=== PATIENT | female | born 2000 | race Caucasian/White ===

== ENCOUNTER 2024-04-04 08:33 | Day surgery (SDC) | payer BC ==
[2024-04-04] MEDS ORDERED: hydrALAZINE 20 MG/ML VIAL SLOW IVP PRN (08:54)
[2024-04-04 09:30] VITALS: BMI 27.6
[2024-04-04 09:41] LABS: #Basophils 0.01 10x3/uL (0.0-0.2); #Eosinphils 0.02 10x3/uL (0.0-0.5); #Monocytes 0.54 10x3/uL (0.0-1.1); #Neutrophils 5.58 10x3/uL (1.5-8.4); %Basophils 0.1 % (0.0-2.0); %Eosinophils 0.3 % (0.0-6.0); %Lymphocytes 18.8 % (18.0-47.0); %Monocytes 7.1 % (0.0-10.0); %Neutrophils 73.4 % (40.0-75.0); Hematocrit 37.2 % (34.9-44.5); Hemoglobin 12.9 g/dL (12.0-15.5); Mean Corpuscular HGB CONC 34.7 g/dL (32.0-36.0); Mean Corpuscular Hemoglobin 32.5 pg (27.0-33.0); Mean Corpuscular Volume 93.7 fL (81.6-98.3); Mean Platelet Volume 10.5 fL (7.4-10.4); Platelet Count 189 10x3/uL (150-450); RBC Distribution Width 13.2 % (11.5-14.5); Red Blood Cell (RBC) Count 3.97 10x6/uL (3.90-5.03); White Blood Cell (WBC) Count 7.6 10x3/uL (3.5-10.5)
[2024-04-04] MEDS: Acetaminophen 500 MG TAB PO SCH (09:55)
[2024-04-04] MEDS: diphenhydrAMINE 50 MG/ML VIAL IVP SCH (09:56)
[2024-04-04] MEDS: Metoclopramide HCl 10 MG (2 mL) VIAL IVP SCH (09:56)
[2024-04-04] MEDS ORDERED: Lactated Ringer's 1,000 ML IV SCH (10:00)
[2024-04-04 10:06] LABS: ALT (SGPT) 7 U/L (8-55); AST (SGOT) 12 U/L (5-34); Albumin 2.6 g/dL (3.5-5.0); Alkaline Phosphatase 154 U/L (40-110); Anion Gap 13 mmol/L (10-20); BUN (Urea Nitrogen) 6 mg/dL (7.0-18.7); Bilirubin, Total 0.2 mg/dL (0.2-1.2); Calc. Creatinine Clearance 193 mL/min (70-130); Carbon Dioxide 22 mmol/L (22-29); Chloride 107 mmol/L (98-107); Estimated GFR 131; Globulin 2.9 g/dL (2.4-3.5); Glucose 91 mg/dL (70-105); Potassium 3.9 mmol/L (3.5-5.1); Protein, Total 5.5 g/dL (6.0-8.3); Sodium 138 mmol/L (136-145)
[2024-04-04 10:10] LABS: Bilirubin Neg (Negative); Blood, Urine Negative (Negative); Clarity Cloudy (Clear); Glucose, Urine (Dipstick) Normal (Negative); Ketone, Urine Negative (Negative); Leukocyte 100 (Negative); Nitrite Negative (Negative); Protein, Urine (Dipstick) 15 mg/dl (Neg-Trace); Specific Gravity, Urine 1.015 (1.005-1.030); Urobilinogen Normal mg/dL (Less than 2)
[2024-04-04 10:13] LABS: Influenza A by NAA Not Detected (NotDetected); Influenza B by NAA Not Detected (NotDetected); RSV by NAA Not Detected (NotDetected); SARS-CoV-2 NAA Rapid Test Not Detected (NotDetected)
[2024-04-04 10:26] LABS: Bacteria/HPF 1+ HPF (None Seen); CAUTI Indications for Culture Pregnancy; RBC/HPF 0-3 HPF (0-3); Urine Culture Reflex Yes Yes
[2024-04-04] MEDS ORDERED: Multivitamins, Adult 10 ML, Folic Acid 1 MG, Thiamine HCl 100 MG, Admixture Fee 1 EACH ... IV SCH (12:00)
== END 2024-04-04 13:06 | disposition home or self-care (01) ==
LOC: CSHLD/OP 08:33
PROVIDERS: ATTEND Student in an Organized Health Care Education/Training Program
DX: O99.613 Diseases of the digestive system complicating pregnancy, third trimester (principal); K52.9 Noninfective gastroenteritis and colitis, unspecified; O47.03 False labor before 37 completed weeks of gestation, third trimester; O00.01 Abdominal pregnancy with intrauterine pregnancy; O99.891 Other specified diseases and conditions complicating pregnancy; R51.9 Headache, unspecified; O21.9 Vomiting of pregnancy, unspecified; O99.513 Diseases of the respiratory system complicating pregnancy, third trimester; J45.909 Unspecified asthma, uncomplicated; O99.283 Endocrine, nutritional and metabolic diseases complicating pregnancy, third trimester; E03.9 Hypothyroidism, unspecified; O99.343 Other mental disorders complicating pregnancy, third trimester; F41.9 Anxiety disorder, unspecified; Z79.899 Other long term (current) drug therapy; Z79.890 Hormone replacement therapy; Z3A.36 36 weeks gestation of pregnancy
CPT/HCPCS: 0241U; 80053; 81001; 85025; 87086; 96360; 96361; 96374; 99285; J1200; J2765; J3411; J7042

== ENCOUNTER 2024-04-22 05:28 | Inpatient (IN) | payer BC ==
[2024-04-22 05:57] VITALS: BMI 29.9
[2024-04-22] MEDS ORDERED: HYDROcodone/Acetaminophen 5/325 mg Tablet PO PRN (06:38)
[2024-04-22] MEDS ORDERED: Diphenoxylate HCl/Atropine Tablet PO PRN (06:38)
[2024-04-22] MEDS ORDERED: hydrALAZINE 20 MG/ML VIAL SLOW IVP PRN (06:38)
[2024-04-22] MEDS ORDERED: Methylergonovine 0.2 MG/ML VIAL IM PRN (06:38)
[2024-04-22] MEDS ORDERED: Carboprost 250 MCG/ML AMP IM PRN (06:38)
[2024-04-22] MEDS ORDERED: Promethazine HCl 25 MG/ML VIAL IM PRN ×3 (06:38→16:31)
[2024-04-22] MEDS ORDERED: Ondansetron PF 4 MG/2 ML Vial IVP PRN ×2 (06:38→11:42)
[2024-04-22] MEDS ORDERED: Acetaminophen 500 MG TAB PO PRN (06:38)
[2024-04-22 06:58] LABS: Hematocrit 35.5 % (34.9-44.5); Hemoglobin 12.7 g/dL (12.0-15.5); Mean Corpuscular HGB CONC 35.8 g/dL (32.0-36.0); Mean Corpuscular Hemoglobin 33.2 pg (27.0-33.0); Mean Corpuscular Volume 92.9 fL (81.6-98.3); Mean Platelet Volume 10.8 fL (7.4-10.4); Platelet Count 166 10x3/uL (150-450); RBC Distribution Width 13.3 % (11.5-14.5); Red Blood Cell (RBC) Count 3.82 10x6/uL (3.90-5.03)
[2024-04-22] MEDS: Oxytocin 30 units/NS 500 ML 500 ML IV SCH (07:23)
[2024-04-22] MEDS: Lactated Ringer's 1,000 ML IV SCH (07:23)
[2024-04-22 07:28] LABS: ALT (SGPT) 7 U/L (8-55); AST (SGOT) 13 U/L (5-34); Albumin 2.6 g/dL (3.5-5.0); Alkaline Phosphatase 210 U/L (40-110); Anion Gap 14 mmol/L (10-20); BUN (Urea Nitrogen) 7 mg/dL (7.0-18.7); Bilirubin, Total 0.2 mg/dL (0.2-1.2); Calc. Creatinine Clearance 207 mL/min (70-130); Calcium 8.5 mg/dL (7.8-10.44); Carbon Dioxide 21 mmol/L (22-29); Chloride 107 mmol/L (98-107); Estimated GFR 129; Globulin 2.9 g/dL (2.4-3.5); Glucose 106 mg/dL (70-105); Potassium 3.6 mmol/L (3.5-5.1); Protein, Total 5.5 g/dL (6.0-8.3); Sodium 138 mmol/L (136-145)
[2024-04-22 07:32] LABS: Syphilis Antibody Nonreactive (Nonreactive); Syphilis Antibody Index 0.04 S/CO (<1.00 Non-Reactive)
[2024-04-22 07:33] LABS: HBsAg Index 0.18 S/CO (0-0.99); Hep B Surf Ag - L&D Non-Reactive S/CO (NonReactive)
[2024-04-22] MEDS: fentaNYL 50 mcg/mL 1 mL Vial SLOW IVP PRN (10:36)
[2024-04-22 11:16] LABS: INR-International Normal Ratio 0.9; PTT 23.6 sec (22.0-33.0)
[2024-04-22] MEDS ORDERED: Naloxone HCl 0.4 mg/ml Vial IV PRN ×2 (11:42→16:31)
[2024-04-22] MEDS ORDERED: diphenhydrAMINE 25 MG CAP PO PRN ×2 (11:42→16:31)
[2024-04-22] MEDS ORDERED: diphenhydrAMINE 50 MG/ML VIAL IVP PRN ×2 (11:42→16:31)
[2024-04-22] MEDS ORDERED: diphenhydrAMINE 50 MG/ML VIAL IM PRN ×2 (11:42→16:31)
[2024-04-22] MEDS ORDERED: Communication Order-Pharmacy FS PRN (11:45)
[2024-04-22] MEDS: FENTANYL 500 MCG/10 ML VIAL 1,000 MCG in Sodium Chloride 0.9% 30 ML IV PRN (14:33)
[2024-04-22] MEDS ORDERED: FENTANYL 500 MCG/10 ML VIAL 1,000 MCG in Sodium Chloride 0.9% 30 ML IV PRN (16:01)
[2024-04-22] MEDS: FENTANYL 500 MCG/10 ML VIAL 2,000 MCG in Sodium Chloride 0.9% 60 ML IV PRN (16:20)
[2024-04-22] MEDS ORDERED: Communication Order-Pharmacy FS SCH (16:45)
[2024-04-22] MEDS: HYDROmorphone/PF 10 MG in Sodium Chloride 0.9% 49 ML IV PRN (17:29)
[2024-04-22] MEDS: Ondansetron PF 4 MG/2 ML Vial IVP PRN (19:41)
[2024-04-23] MEDS: Lidocaine 1% (PF) 30 ML VIAL SC PRN (03:20)
[2024-04-23] MEDS: Oxytocin 30 units/NS 500 ML 500 ML IV SCH (03:20)
[2024-04-23] MEDS: Misoprostol 200 MCG TAB PR PRN (03:34)
[2024-04-23 03:47] LABS: Analyzer IN Cardio CS NICU; RapidComm Collect By RN; pH (Cord, venous) 7.289 (7.250-7.350)
[2024-04-23] MEDS: Ibuprofen 800 MG TAB PO PRN (04:56)
[2024-04-23] MEDS ORDERED: Lanolin Ointment 7 GM TUBE TOP PRN (06:39)
[2024-04-23] MEDS ORDERED: hydrALAZINE 20 MG/ML VIAL SLOW IVP PRN (06:39)
[2024-04-23] MEDS ORDERED: HYDROcodone/Acetaminophen 5/325 mg Tablet PO PRN (06:39)
[2024-04-23] MEDS ORDERED: Ondansetron PF 4 MG/2 ML Vial IVP PRN (06:39)
[2024-04-23] MEDS ORDERED: Bisacodyl 10 MG SUPP PR PRN (06:39)
[2024-04-23] MEDS ORDERED: Benzocaine-Menthol 82.5 ML CAN TOP PRN (06:39)
[2024-04-23] MEDS ORDERED: Preparation H Ointment 28 GM TUBE PR PRN (06:39)
[2024-04-23] MEDS ORDERED: diphenhydrAMINE 25 MG CAP PO PRN (06:39)
[2024-04-23] MEDS ORDERED: Promethazine HCl 25 MG/ML VIAL IM PRN (06:39)
[2024-04-23] MEDS: Boostrix 0.5 ML (Tdap) VIAL (>/=7 yrs of age) IM ONE (08:13)
[2024-04-23] MEDS: Tranexamic Acid 1,000 MG/10 ML VIAL ONE (08:13)
[2024-04-23] MEDS: Ferrous Sulfate 325 MG TAB PO SCH (08:15)
[2024-04-23] MEDS: Prenatal Vitamin 1 TAB PO SCH (08:27)
[2024-04-23] MEDS: Docusate 100 MG CAP PO SCH (08:27)
[2024-04-23] MEDS: HYDROcodone/Acetaminophen 5/325 mg Tablet PO PRN (09:51)
[2024-04-23] MEDS: Milk Of Magnesia 30 ML UDCUP PO PRN (14:37)
[2024-04-23] MEDS: Ibuprofen 800 MG TAB PO SCH (14:38)
[2024-04-23] MEDS: Escitalopram Oxalate 10 mg Tablet PO SCH (22:09)
[2024-04-24] MEDS: Levothyroxine Sodium 25 MCG TAB PO SCH (07:44)
[2024-04-24 20:17] VITALS: TEMP 98.1
[2024-04-24] MEDS: Escitalopram Oxalate 10 mg Tablet PO SCH (22:24)
[2024-04-25 13:32] VITALS: BP 119/81
== END 2024-04-25 13:49 | disposition home or self-care (01) | DRG 768 ==
LOC: CSHLD 05:28 → CSHPP 04-23 06:00
PROVIDERS: ADMIT Student in an Organized Health Care Education/Training Program; ATTEND Student in an Organized Health Care Education/Training Program
PROC: 10E0XZZ Delivery of Products of Conception, External Approach (ICD-10-PCS; principal; 2024-04-23)
PROC: 0DQR0ZZ Repair Anal Sphincter, Open Approach (ICD-10-PCS; 2024-04-23)
DX: O70.20 Third degree perineal laceration during delivery, unspecified (principal); Z37.0 Single live birth; Z3A.39 39 weeks gestation of pregnancy
CPT/HCPCS: 80053; 82805; 85027; 85230; 85240; 85245; 85246; 85610; 85730; 86780; 86850; 86900; 86901; 87340; J1170; J2001; J2405; J2590; J3010; J3490; J7120